=== PATIENT | female | born 1970 | race Caucasian/White ===

== ENCOUNTER → 2020-09-18 14:09 | Outpatient (CLI) | payer OTHER, SELFPAY ==
[2020-09-18 14:29] LABS: Basophils # 0.1 K/mm3 (0-0.2); Eosinophils # 0.5 K/mm3 (0.0-0.4); Hematocrit 47.4 % (37.0-47.0); Hemoglobin 15.5 g/dL (12.2-16.2); Lymphocytes # 2.3 K/mm3 (0.7-4.5); Lymphocytes % 28.4 % (10-50); Mean Corpuscular HGB Conc 32.6 g/dL (31.8-35.4); Mean Corpuscular Hemoglobin 28.4 pg (27.0-31.2); Mean Corpuscular Volume 87.1 fl (81-99); Monocytes # 0.5 K/mm3 (0.1-1.0); Monocytes % 6.3 % (1.7-9.3); Neutrophils # 4.8 K/mm3 (1.8-7.8); Neutrophils % 58.4 % (37.0-80.0); Platelet Count 358 K/mm3 (142-424); Red Blood Count 5.45 M/mm3 (4.20-5.40); Red Cell Distribution Width 13.6 % (11.5-17.5); White Blood Count 8.2 K/mm3 (4.8-10.8)
[2020-09-18 14:30] LABS: Alanine Aminotransferase 26 U/L (12-78); Albumin Level 4.2 g/dl (3.5-5.0); Albumin/Globulin Ratio 1.7 (1.1-1.8); Alkaline Phosphatase 137 U/L (38-126); Anion Gap 14.5 mEq/L (5-15); Aspartate Amino Transferase 31 U/L (14-36); Bilirubin,Total 0.3 mg/dl (0.2-1.3); Blood Urea Nitrogen 13 mg/dl (7-17); Calcium 9.9 mg/dl (8.4-10.2); Carbon Dioxide 23 mmol/L (22.0-30.0); Chloride 107 mmol/L (98-107); Chol/HDL Ratio 5.2 (1-3.5); Cholesterol 193 mg/dl (140-200); Estimated Glomerular Filt Rate 106 ml/min (>60); GFR (African American) 129 ML/MIN (>60); Globulin 2.5 g/dL (1.3-3.2); Glucose 96 mg/dl (74-100); HDL Cholesterol 37 mg/dl (40-60); Potassium 4.5 mmoL/L (3.5-5.1); Sodium 140 mmol/L (136-145); Total Protein,Serum 6.7 g/dl (6.3-8.2); Triglycerides 153 mg/dl (30-150); VLDL Cholesterol 31 mg/dL (0-40)
[2020-09-18 14:41] LABS: Direct LDL Cholesterol 125.38 mg/dL (100-129)
[2020-09-18 14:48] LABS: T4 (Thyroxine) 17.9 ug/dl (5.53-11.0)
[2020-09-18 15:03] LABS: Thyroid Stimulating Hormone < 0.02 uIU/mL (0.465-4.68)
== END ==
PROVIDERS: Visit Provider Family Medicine
DX: C73 Malignant neoplasm of thyroid gland (principal)
CPT/HCPCS: 80053; 80061; 84436; 84443; 85025

== ENCOUNTER → 2022-02-22 06:11 | Outpatient (CLI) | payer OTHER, SELFPAY ==
[2022-02-22 15:50] LABS: Basophils # 0.1 K/mm3 (0-0.2); Basophils % 0.9 % (0.1-2.0); Eosinophils # 0.5 K/mm3 (0.0-0.4); Eosinophils % 4.6 % (0.1-12.0); Hemoglobin 14.5 g/dL (12.2-16.2); Lymphocytes # 2.6 K/mm3 (0.7-4.5); Lymphocytes % 25.9 % (10-50); Mean Corpuscular HGB Conc 31.5 g/dL (31.8-35.4); Mean Corpuscular Hemoglobin 28.9 pg (27.0-31.2); Mean Corpuscular Volume 91.6 fl (81-99); Mean Platelet Volume 10.3 fl (7.4-10.4); Monocytes # 0.6 K/mm3 (0.1-1.0); Monocytes % 6.1 % (1.7-9.3); Neutrophils # 6.2 K/mm3 (1.8-7.8); Neutrophils % 62.5 % (37.0-80.0); Platelet Count 333 K/mm3 (142-424); Red Blood Count 5.02 M/mm3 (4.20-5.40); Red Cell Distribution Width 13.6 % (11.5-17.5); White Blood Count 9.9 K/mm3 (4.8-10.8)
[2022-02-22 16:14] LABS: Alanine Aminotransferase 25 U/L (12-78); Albumin Level 4.1 g/dl (3.5-5.0); Albumin/Globulin Ratio 1.6 (1.1-1.8); Alkaline Phosphatase 157 U/L (38-126); Anion Gap 11.5 mEq/L (5-15); Aspartate Amino Transferase 32 U/L (14-36); Blood Urea Nitrogen 9 mg/dl (7-17); Calcium 9.8 mg/dl (8.4-10.2); Carbon Dioxide 27 mmol/L (22.0-30.0); Chloride 106 mmol/L (98-107); Chol/HDL Ratio 5.8 (1-3.5); Cholesterol 208 mg/dl (140-200); Estimated Glomerular Filt Rate 105 ml/min (>60); GFR (African American) 128 ML/MIN (>60); Globulin 2.6 g/dL (1.3-3.2); Glucose 86 mg/dl (74-100); HDL Cholesterol 36 mg/dl (40-60); Potassium 4.5 mmoL/L (3.5-5.1); Sodium 140 mmol/L (136-145); Total Protein,Serum 6.7 g/dl (6.3-8.2); Triglycerides 169 mg/dl (30-150); VLDL Cholesterol 34 mg/dL (0-40)
[2022-02-22 16:23] LABS: Bilirubin,Total < 0.1 mg/dl (0.2-1.3)
[2022-02-22 16:30] LABS: T4 (Thyroxine) 19.2 ug/dl (5.53-11.0)
[2022-02-22 16:43] LABS: Thyroid Stimulating Hormone < 0.02 uIU/mL (0.465-4.68)
[2022-02-24 10:04] LABS: Direct LDL Cholesterol 122 mg/dL (100-129)
== END ==
PROVIDERS: PCP Family Medicine; Visit Provider Family Medicine
DX: Z00.00 Encounter for general adult medical examination without abnormal findings (principal); Z79.899 Other long term (current) drug therapy
CPT/HCPCS: 80053; 80061; 84436; 84443; 85025

== ENCOUNTER → 2023-01-31 23:16 | Outpatient (CLI) | payer OTHER, SELFPAY ==
[2023-01-31 18:13] LABS: Basophils # 0.1 K/mm3 (0-0.2); Basophils % 0.8 % (0.1-2.0); Eosinophils # 0.4 K/mm3 (0.0-0.4); Eosinophils % 4.7 % (0.1-12.0); Hematocrit 46.7 % (37.0-47.0); Hemoglobin 14.9 g/dL (12.2-16.2); Lymphocytes # 2.2 K/mm3 (0.7-4.5); Lymphocytes % 24.7 % (10-50); Mean Corpuscular Hemoglobin 28.9 pg (27.0-31.2); Mean Corpuscular Volume 90.3 fl (81-99); Mean Platelet Volume 10.1 fl (7.4-10.4); Monocytes # 0.5 K/mm3 (0.1-1.0); Monocytes % 6.1 % (1.7-9.3); Neutrophils # 5.6 K/mm3 (1.8-7.8); Neutrophils % 63.7 % (37.0-80.0); Platelet Count 286 K/mm3 (142-424); Red Blood Count 5.17 M/mm3 (4.20-5.40); Red Cell Distribution Width 13.7 % (11.5-17.5); White Blood Count 8.8 K/mm3 (4.8-10.8)
[2023-01-31 18:19] LABS: Alanine Aminotransferase 24 U/L (12-78); Albumin Level 4.2 g/dl (3.5-5.0); Albumin/Globulin Ratio 1.6 (1.1-1.8); Alkaline Phosphatase 151 U/L (38-126); Anion Gap 12.5 mEq/L (5-15); Aspartate Amino Transferase 28 U/L (14-36); Bilirubin,Total 0.2 mg/dl (0.2-1.3); Blood Urea Nitrogen 11 mg/dl (7-17); Calcium 9.2 mg/dl (8.4-10.2); Carbon Dioxide 27 mmol/L (22.0-30.0); Chloride 106 mmol/L (98-107); Chol/HDL Ratio 4.7 (1-3.5); Cholesterol 168 mg/dl (140-200); Estimated Glomerular Filt Rate 105 ml/min (>60); GFR (African American) 127 ML/MIN (>60); Globulin 2.7 g/dL (1.3-3.2); Glucose 79 mg/dl (74-100); HDL Cholesterol 36 mg/dl (40-60); Potassium 4.5 mmoL/L (3.5-5.1); Sodium 141 mmol/L (136-145); Total Protein,Serum 6.9 g/dl (6.3-8.2); Triglycerides 161 mg/dl (30-150); VLDL Cholesterol 32 mg/dL (0-40)
[2023-01-31 18:31] LABS: Direct LDL Cholesterol 95.39 mg/dL (100-129)
== END ==
PROVIDERS: PCP Family Medicine; Visit Provider Family Medicine
DX: M25.562 Pain in left knee (principal); Z79.899 Other long term (current) drug therapy
CPT/HCPCS: 80053; 80061; 85025

== ENCOUNTER 2023-12-05 18:00 | Outpatient (CLI) | payer OTHER, SELFPAY ==
[2023-12-05 18:12] LABS: Basophils # 0.1 K/mm3 (0-0.2); Basophils % 1.2 % (0.1-2.0); Eosinophils # 0.3 K/mm3 (0.0-0.4); Eosinophils % 4.7 % (0.1-12.0); Hematocrit 47.7 % (37.0-47.0); Hemoglobin 15.3 g/dL (12.2-16.2); Lymphocytes # 2.6 K/mm3 (0.7-4.5); Lymphocytes % 35.3 % (10-50); Mean Corpuscular Hemoglobin 29.3 pg (27.0-31.2); Mean Corpuscular Volume 91.7 fl (81-99); Mean Platelet Volume 10.7 fl (7.4-10.4); Monocytes # 0.4 K/mm3 (0.1-1.0); Monocytes % 5.2 % (1.7-9.3); Neutrophils # 3.9 K/mm3 (1.8-7.8); Neutrophils % 53.6 % (37.0-80.0); Platelet Count 307 K/mm3 (142-424); Red Blood Count 5.21 M/mm3 (4.20-5.40); Red Cell Distribution Width 14.2 % (11.5-17.5); White Blood Count 7.3 K/mm3 (4.8-10.8)
[2023-12-05 18:29] LABS: Chloride 107 mmol/L (98-107)
[2023-12-05 18:30] LABS: Potassium 4.2 mmoL/L (3.5-5.1); Sodium 139 mmol/L (136-145)
[2023-12-05 18:32] LABS: Alanine Aminotransferase 30 U/L (12-78); Alkaline Phosphatase 112 U/L (38-126); Aspartate Amino Transferase 35 U/L (14-36); Bilirubin,Total 0.3 mg/dl (0.2-1.3)
[2023-12-05 18:33] LABS: Albumin Level 4.1 g/dl (3.5-5.0); Albumin/Globulin Ratio 1.6 (1.1-1.8); Anion Gap 10.2 mEq/L (5-15); Calcium 9.4 mg/dl (8.4-10.2); Carbon Dioxide 26 mmol/L (22.0-30.0); Cholesterol 180 mg/dl (140-200); Globulin 2.5 g/dL (1.3-3.2); Glucose 95 mg/dl (74-100); HDL Cholesterol 36 mg/dl (40-60); Total Protein,Serum 6.6 g/dl (6.3-8.2); Triglycerides 132 mg/dl (30-150); VLDL Cholesterol 26 mg/dL (0-40)
[2023-12-05 18:48] LABS: Direct LDL Cholesterol 110.49 mg/dL (100-129)
[2023-12-05 18:57] LABS: 25-OH Vitamin D, Total 26.6 ng/mL (30-100)
[2023-12-05 19:04] LABS: Blood Urea Nitrogen 12 mg/dl (7-17); Estimated Glomerular Filt Rate 105 ml/min (>60); GFR (African American) 127 ML/MIN (>60)
== END 2023-12-05 23:59 | disposition home or self-care (01) ==
LOC: LAB.DROPOF 12-06 09:59
PROVIDERS: PCP Family Medicine; Visit Provider Family Medicine
DX: I10 Essential (primary) hypertension (principal); F17.210 Nicotine dependence, cigarettes, uncomplicated; E55.9 Vitamin D deficiency, unspecified; Z68.32 Body mass index [BMI] 32.0-32.9, adult; E66.9 Obesity, unspecified
CPT/HCPCS: 80053; 80061; 82306; 85025

== ENCOUNTER 2024-03-12 14:40 | Outpatient (CLI) | payer OTHER, SELFPAY ==
[2024-03-12 18:50] LABS: Basophils # 0.1 K/mm3 (0-0.2); Basophils % 1.1 % (0.1-2.0); Eosinophils # 0.3 K/mm3 (0.0-0.4); Hematocrit 47.1 % (37.0-47.0); Hemoglobin 14.6 g/dL (12.2-16.2); Lymphocytes # 2.3 K/mm3 (0.7-4.5); Lymphocytes % 28.4 % (10-50); Mean Corpuscular HGB Conc 31.1 g/dL (31.8-35.4); Mean Corpuscular Hemoglobin 28.9 pg (27.0-31.2); Mean Corpuscular Volume 92.9 fl (81-99); Mean Platelet Volume 10.5 fl (7.4-10.4); Monocytes # 0.5 K/mm3 (0.1-1.0); Monocytes % 5.8 % (1.7-9.3); Neutrophils # 4.8 K/mm3 (1.8-7.8); Neutrophils % 60.6 % (37.0-80.0); Platelet Count 332 K/mm3 (142-424); Red Blood Count 5.06 M/mm3 (4.20-5.40); Red Cell Distribution Width 14.1 % (11.5-17.5); White Blood Count 7.9 K/mm3 (4.8-10.8)
[2024-03-12 19:15] LABS: Alanine Aminotransferase 34 U/L (12-78); Albumin Level 3.8 g/dl (3.5-5.0); Albumin/Globulin Ratio 1.4 (1.1-1.8); Alkaline Phosphatase 131 U/L (38-126); Anion Gap 7.4 mEq/L (5-15); Aspartate Amino Transferase 35 U/L (14-36); Bilirubin,Total 0.3 mg/dl (0.2-1.3); Blood Urea Nitrogen 11 mg/dl (7-17); Calcium 9.3 mg/dl (8.4-10.2); Carbon Dioxide 27 mmol/L (22.0-30.0); Chloride 109 mmol/L (98-107); Estimated Glomerular Filt Rate 105 ml/min (>60); GFR (African American) 127 ML/MIN (>60); Globulin 2.7 g/dL (1.3-3.2); Glucose 93 mg/dl (74-100); Potassium 4.4 mmoL/L (3.5-5.1); Sodium 139 mmol/L (136-145); Total Protein,Serum 6.5 g/dl (6.3-8.2)
[2024-03-12 19:59] LABS: Vitamin B12 353 pg/mL (239-931)
[2024-03-12 20:55] LABS: Iron 73 ug/dL (37-170)
[2024-03-12 21:04] LABS: Total Iron Binding Capacity 342 ug/dL (265-497)
[2024-03-24 20:09] LABS: 1,25 Dihydroxy Vitamin D 20 pg/mL (.); 1,25-Dihydroxy, Vitamin D-2 <10 pg/mL (.); 1,25-Dihydroxy, Vitamin D-3 20 pg/mL (.)
== END 2024-03-12 23:59 | disposition home or self-care (01) ==
LOC: LAB.DROPOF 03-13 10:51
PROVIDERS: PCP Family Medicine; Visit Provider Family Medicine
DX: R00.0 Tachycardia, unspecified (principal)
CPT/HCPCS: 80053; 82607; 82652; 83540; 83550; 85025

== ENCOUNTER 2024-09-19 13:25 | Outpatient (CLI) | payer OTHER, SELFPAY ==
[2024-09-19 19:57] LABS: Basophils # 0.1 K/mm3 (0-0.2); Basophils % 1.4 % (0.1-2.0); Eosinophils # 0.4 K/mm3 (0.0-0.4); Eosinophils % 5.7 % (0.1-12.0); Hematocrit 43.9 % (37.0-47.0); Hemoglobin 14.5 g/dL (12.2-16.2); Lymphocytes # 2.7 K/mm3 (0.7-4.5); Lymphocytes % 34.9 % (10-50); Mean Corpuscular Hemoglobin 28.8 pg (27.0-31.2); Mean Corpuscular Volume 87.3 fl (81-99); Mean Platelet Volume 12.4 fl (7.4-10.4); Monocytes # 0.7 K/mm3 (0.1-1.0); Monocytes % 8.7 % (1.7-9.3); Neutrophils # 3.8 K/mm3 (1.8-7.8); Platelet Count 317 K/mm3 (142-424); Red Blood Count 5.03 M/mm3 (4.20-5.40); Red Cell Distribution Width 12.6 % (11.5-17.5); White Blood Count 7.7 K/mm3 (4.8-10.8)
[2024-09-19 20:40] LABS: Alanine Aminotransferase 23 U/L (12-78); Albumin Level 4.3 g/dl (3.5-5.0); Albumin/Globulin Ratio 2.2 (1.1-1.8); Alkaline Phosphatase 89 U/L (38-126); Anion Gap 15.3 mEq/L (5-15); Aspartate Amino Transferase 28 U/L (14-36); Bilirubin,Total 0.4 mg/dl (0.2-1.3); Blood Urea Nitrogen 12 mg/dl (7-17); Calcium 9.9 mg/dl (8.4-10.2); Carbon Dioxide 24 mmol/L (22.0-30.0); Chloride 105 mmol/L (98-107); Chol/HDL Ratio 5.2 (1-3.5); Cholesterol 160 mg/dl (140-200); Estimated Glomerular Filt Rate 105 ml/min (>60); GFR (African American) 127 ML/MIN (>60); Glucose 85 mg/dl (74-100); HDL Cholesterol 31 mg/dl (40-60); Potassium 4.3 mmoL/L (3.5-5.1); Sodium 140 mmol/L (136-145); Total Protein,Serum 6.3 g/dl (6.3-8.2); Triglycerides 183 mg/dl (30-150); VLDL Cholesterol 37 mg/dL (0-40)
[2024-09-19 21:17] LABS: Hemoglobin A1C 5.6 % (4.0-6.0)
[2024-09-19 22:30] LABS: HIV Combo NEGATIVE (Negative)
[2024-09-19 22:37] LABS: Hepatitis C Ab Qual. W/ RFX NEGATIVE (Negative)
== END 2024-09-19 23:59 | disposition home or self-care (01) ==
LOC: LAB.DROPOF 09-20 12:24
PROVIDERS: PCP Family Medicine; Visit Provider Family Medicine
DX: F41.9 Anxiety disorder, unspecified (principal); Z11.59 Encounter for screening for other viral diseases
CPT/HCPCS: 80053; 80061; 83036; 85025; 86803; 87389

== ENCOUNTER 2025-02-15 12:32 | Outpatient (CLI) | payer OTHER, SELFPAY ==
--- OUTSIDE RECORDS SUMMARY | 2025-02-18 12:34 | XMS_ITS | Encounter Summary ---
Author Organization Healthcare Address [address] [place] [address] Care Team Providers Care Shop Coordinator Name Role Phone Devyn Leiva MD Primary Care Provider [phone] Reason for Visit * Reason Comments Med Refill Encounter Details Date Type Department Care Team (Late Contact Info) Description 06/03/2023 Refill [facility] [address] [place] [address] Nadege Vidal S, COMPLIANCE SPECIALIST 5 [facility] [address] [place] [address] Papillary thyroid carcinoma (CMS/HCC); Postoperative hypothyroidism Social History Tobacco Use Types Packs/Day Years Used Date Smoking Tobacco: Every Day Cigarettes 1 36.6 Started: 1988 Smokeless Tobacco: Never Comments:Patient quit and st arted back. 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 Not on file Not on file No t on file documented as of this encounter Plan of Treatment Upcoming Encounters Date Type Department Care Team (Late st Contact Info) Description 04/03/2025 3:15 PM EDT Clinical Support [facility] [address] [facility], [address] [place] [address] 04/03/2025 3:30 PM EDT Office Visit [facility] [address] [facility], [address] [place] [address] Franc Quintanilla MD [address] [place] [address] [address] [place] [address] documented as of this encounter Visit Diagnoses Diagnosis Papillary thyroid carcinoma Postoperative hypothyroidism Postsurgical hypothyroidism documented in this encounter Additional Health Concerns Assessment Noted Time A fall risk assessment has been complete d for the patient 05/23/2023 11:02 AM EST A Body Mass Index follow-up plan has been documented for the patient 05/23/2023 1:30 PM EST documented as of this encounter Care Teams Shop Coordinator Relationship Specialty Start Date End Date Devyn Leiva MD PCP - General 06/07/21 documented as of this encounter
--- OUTSIDE RECORDS SUMMARY | 2025-02-18 12:34 | XMS_ITS | Clinical Summary ---
Author Organization [facility] Address [address] [place] [address] Care Team Providers Care Regulatory Affairs Coordinator Name Role Phone Devyn Leiva MD Primary Care Provider [phone] Allergies Active Allergy Reactions Criticality Noted Date Comments Gramineae Pollens Other - please docum ent in the comment field High 02/22/2022 Medications pantoprazole (Protonix) 40 MG EC tablet Take 1 tablet daily 8 Active LORazepam (Ativan) 1 MG tablet TAKE 1 TABLET Twice daily as needed. (patient usually takes one a day) 5 Active cholecalciferol (Vitamin D-3) 25 MCG (1000 UT) capsule TAKE 1 CAPSULE Daily 1 Active bisoprolol (Zebeta) 10 MG tablet TAKE 1 TABLET ONCE DAILY. 9 Active meloxicam (Mobic) 7.5 MG tablet Take 1 tablet (7.5 mg) by mouth if needed. 1 Active butalbital-acetamin rlzix-knwkvygu-zlfs ine (Fioricet w/Codeine) 44-636-74-30 MG capsule 2 Active levothyroxine (Synthroid, Levoxyl) 175 MCG tabletIndications:P ostoperative hypothyroidism Take 1 tablet (175 mcg) by mouth 1 (one) time each day. 90 tablet 3 4 05/02/20 25 Active lisinopril 2.5 MG tabletIndications:E ssential (primary) hypertension Take 1 tablet (2.5 mg) by mouth 1 (one) time each day. 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 06/06/2022 Elevated tumor markers 06/06/2022 Postoperative hypothyroidism 06/07/2021 Nicotine dependence, cigarettes, uncomplicated 1 08/08/2020 Acquired complex cyst of kidney 07/21/2020 Bilateral adrenal adenomas 08/24/2019 Abnormal heart rate 09/11/2018 Papillary thyroid carcinoma 09/20/2016 Cancer Staging:Clinical stage from 06/07/2021:Stage I(ycT2, ycN1b, cM0, Age at diagnosis: < 55 years) - Signed by Rohan Lau MD on 06/07/2021 Stress 12/23/2014 Obesity (BMI 30-39.9) 03/19/2013 Essential (primary) hypertension 03/19/2013 Family History Medical History Relation Name Comments Alcohol abuse Father Graves' disease Sister Thyroid cancer Neg Hx Relation Name Status Comments Father Sister Social History Tobacco Use Types Packs/Day Years Used Date Smoking Tobacco: Every Day Cigarettes 1 36.6 Started: 1988 Smokeless Tobacco: Never Tobacco Cessation:Ready to Q uit: No; Counseling Given: No Comments:Patient quit and started back. Alcohol Use Standard Drinks/Week Comments No [...] Not on file No t on file Last Filed Vital Signs Vital Sign Reading Time Taken Comments Blood Pressure 117/83 05/02/2024 12:04 PM EST Pulse 82 05/02/2024 12:04 PM EST Temperature 36.9 C (98.5 F) 05/02/2024 12:04 PM EST Respiratory Rate 18 05/02/2024 12:04 PM EST Oxygen Saturation 97% 05/02/2024 12:04 PM EST Inhaled Oxygen Concentration - - Weight 101 kg (223 lb 1.7 oz) 05/02/2024 12:04 P M EST Height 171.5 cm (5' 7.52 ) 05/02/2024 12:[address] Body Mass Index 34.41 05/02/2024 12:04 PM EST Plan of Treatment Upcoming Encounters Date Type Department Care Team (Late st Contact Info) Description 04/03/2025 3:15 PM EDT Clinical Support [facility] [address] [facility], [address] [place] [address] 04/03/2025 3:30 PM EDT Office Visit [facility] [address] [facility], [address] [place] [address] Franc Quintanilla MD [address] [facility] [address] [place] [address] Health Maintenance Due Date Last Done Comments [facility]-HIV Screening 1970 [facility]-Hepatitis C Screening 1971 [facility]-/Child/Adol SDOH Screenings 1971 [facility]- SDOH Screenings 1989 [facility]-Adult SDOH Screenings 1989 [facility]-DTaP,Tdap,and Td Vaccines (1 - Tdap) 1990 [facility]-Hepatitis B Vaccines (1 of 3 - 19+ 3-dose series) 1990 [facility]-Pneumococcal Vaccine: 50+ Years (1 of 2 - PCV) 1990 [facility]-Zoster Vaccines (1 of 2) 1990 [facility]-Pap Smear 05/07/2005 05/07/2002 [facility]-Cervical Cancer Screening 05/07/2007 [facility]-HPV/Cotest 05/07/2007 05/07/2002 CT Colonography 01/06/2016 Colonoscopy 01/06/2016 FIT-DNA 01/06/2016 FIT 01/06/2016 FOBT 01/06/2016 Sigmoidoscopy 01/06/2016 [facility]-Colorectal Cancer Screening 01/06/2016 [facility]-Breast Cancer Screening 2021 [facility]-Lung Cancer Screening 2021 08/24/2019, [id number] Vaccine (3 - Moderna risk series) 06/16/2022 05/19/2022, 04/21/2022 [facility]-Depression Screening 06/07/2023 06/07/2022 [facility]-Influenza Vaccine (#1) 02/25/202503/30, 05/24/2023, 04/29/2022, Additional history exists [facility]-Obesity Intervention Completed 05/23/2023, 05/27 HPV Vaccines Aged Out No longer eligi ble based on patient's age to complete this topic [facility]-HIB Vaccines Aged Out No longer e ligible based on patient's age to complete this topic [facility]-Hepatitis A Vaccines Aged Out No longer eligible based on patient's age to complete this topic [facility]-IPV Vaccines Aged Out No longer e ligible based on patient's age to complete this topic [facility]-Rotavirus Vaccines Aged Out No lo nger eligible based on patient's age to complete this topic Procedures Procedure Name Priority Date/Time Associated Diagnosis Comments CT CHEST W IV CONTRAST Routine 08/24/2019 2:00 PM EST CYTO DATA CONVERSION Routine 05/07/2002 12:00 AM EST from Last 3 Months or Most Recently Relevant to Health Maintenance Results * CT Chest w IV Contrast (08/24/2019 2:00 PM EST) Anatomical Region Laterality Modality Chest Computed Tomogra phy Narrative 08/24/2019 2:26 PM EST REQUESTING PHYSICIAN: JOHN TSANG REASON FOR EXAMINATION/PROCEDURE: papillary thyroid carcinoma EXAMINATION / PROCEDURE: CT Chest W IVCON Aug 24 2019 - 14:00; CLINICAL INDICATION: Papillary thyroid carcinoma TECHNIQUE: Multi ple CT helical images were obtained from thoracic inlet through upper abdomen with administration of IV contrast. 100 mL of Omnipaque-300 were administered intravenously. TOTAL DLP (Dose-Length Product, units of mGy.cm): 2000. Please note: The reported value represents the total of one or more individual components during the CT acquisition on this date and at this time, and as such, the same value may appear in more than one CT report depending on the interpreting/reporting p hysicians. COMPARISON: 20 October 2015 FINDINGS: Mediastinum and pleura: Post thyroidectomy. No adenopathy. Lungs: No suspicious pulmonary nodules. Upper Abdomen: Please see also report for CT abdomen dictated separately Musculoskeletal : No suspicious lytic or sclerotic lesion. IMPRESSION: No evidence of thoracic malignancy. CRITICAL RESULT: No. COMMUNICATION: Per this written report. ATTESTATION: Not Applicable. Verified by: DIEGO MORRIS M.D. on 2019 2:24P Transcribed by: SHELDON on Aug 24 2019 2:24P Dictated by: DIEGO MORRIS M.D. on Aug 24 2019 2:11P Procedure Note Diego Morris - 10/20/2020 REQUESTING PHYSICIAN: JOHN TSANG REASON FOR EXAMINATION/PROCEDURE: papillary thyroid carcinoma EXAMINATION / PROCEDURE: CT Chest W IVCON Aug 24 2019 - 14:00; CLINICAL INDICATION: Papillary thyroid carcinoma TECHNIQUE: Multi ple CT helical images were obtained from thoracic inlet through upper abdomen with administration of IV contrast. 100 mL of Omnipaque-300 were administered intravenously. TOTAL DLP (Dose-Length Product, units of mGy.cm): 2000. Please note: The reported value represents the total of one or more individual components during the CT acquisition on this date and at this time, and as such, the same value may appear in more than one CT report depending on the interpreting/reporting p hysicians. COMPARISON: 20 October 2015 FINDINGS: Mediastinum and pleura: Post thyroidectomy. No adenopathy. Lungs: No suspicious pulmonary nodules. Upper Abdomen: Please see also report for CT abdomen dictated separately Musculoskeletal : No suspicious lytic or sclerotic lesion. IMPRESSION: No evidence of thoracic malignancy. CRITICAL RESULT: No. COMMUNICATION: Per this written report. ATTESTATION: Not Applicable. Verified by: DIEGO MORRIS M.D. on 2019 2:24P Transcribed by: SHELDON on Aug 24 2019 2:24P Dictated by: DIEGO MORRIS M.D. 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 Service: RAD Location: [facility] OTHER MD(S): Jim Lau MD Reported: 05/07/2002 15:42 Collected: 05/07/2002 00:00 DIAGNOSIS ULTRASOUND GUIDED FNA, LEFT UPPER NECK NODULE: SPECTRUM OF LYMPHOCYTES AND HISTIOCYTES MOST CONSISTENT WITH REACTIVE LYMPHOID HYPERPLASIA; NO METASTATIC CARCINOMA IDENTIFIED. Electronically Signed Out Martha Rico MD PROCEDURES/ADDENDA GROSS DESCRIPTION: 2 cc's of tinted fluid. CLINICAL INFORMATION: CLINICAL DIAGNOSIS 1.5cm left upper mass. History of total thyroidectomy in 1998 for papillary thyroid cancer; increasing thyroglobulin. FNA performed/attended by / Lina x2 Immediate evaluation personally performed by: Martha Rico M.D: x 2 Pass # 1-: lymphocytes Pass # 2: mostly blood This service has been rendered in part by a fellow/resident. A pathologist has personally reviewed the slides and has rendered and is responsible for the diagnosis that appears on the report. SPECIMEN DESCRIPTION: A: FNA LT NECK Us/ Gl PAP STAIN x 3, DIFF-QUIK x 4, THIN PREP PROCESS CELLULAR ENHANCEMENT ICD: 785.6 ENLARGEMENT OF LYMPH NODES (REACTIVE LYMPHOID HYPERPLASIA - LYMPH NODE) F: A; 24930 ASP INTER, 87937 onsite FN(2), 13973 EXVAG SNOMED CODES: A; [id number] GU1626 P1149 [id number] A resident has participated in this service. A pathologist has performed and is responsible for the reported pathologic evaluation. us Historical Provider LAB PATHOLOGY ORDERABLES Fin al Result SUNQUEST from Last 3 Months or Most Recently Relevant to Health Maintenance Insurance [employer] Care Teams Regulatory Affairs Coordinator Relationship Specialty Start Date End Date Devyn Leiva MD PCP - General 06/07/21
--- OUTSIDE RECORDS SUMMARY | 2025-02-18 12:34 | XMS_ITS | Clinical Summary ---
Author Organization [facility] Address [address] [place] [address] Phone Care Team Providers Care Senior Teradata Developer Name Role Phone Unavailable Primary Care Provider Unavailabl e Social History Tobacco Use Types Packs/Day Years Used Date Smoking Tobacco: Never Assessed Comments Unknown Sex and Gender Information Value Date Recorded Sex Assigned at Not on file Legal Sex Female 1:03 PM EST Gender Identity Not on file Sexual Orientation Not on file Plan of Treatment Health Maintenance Due Date Last Done Comments Annual Wellness Exam 1974 DTaP/TDaP/Td (1 - Tdap) 1990 Hepatitis B Vaccine (1 of 3 - 19+ 3-dose series) 1990 Cervical Cancer Screening 01/06/1992 Pap Smear 01/06/1992 HPV/Pap Cotest 2001 Breast Cancer Screening 2011 Cologuard 01/06/2016 Colon Cancer Screening 01/06/2016 Colonoscopy 01/06/2016 FIT 01/06/2016 Sigmoidoscopy 01/06/2016 Virtual Colonography 01/06/2016 Pneumococcal Vaccine 50+ (1 of 1 - PCV) 2021 Zoster (1 of 2) 2021 COVID-19 Vaccine (3 - 2023-2 5 season) 2024 05/19/2022, 04/21/2022 Influenza Vaccine (#1) 2025 2, 04/15/2021 Meningococcal B Vaccine Aged Out No l onger eligible based on patient's age to complete this topic Insurance [employer] [facility]
== END 2025-02-15 23:59 | disposition home or self-care (01) ==
LOC: LAB.DROPOF 02-18 12:32
PROVIDERS: PCP Nurse Practitioner Family; Visit Provider Nurse Practitioner Family
DX: J02.9 Acute pharyngitis, unspecified (principal); R30.0 Dysuria
CPT/HCPCS: 87086